=== PATIENT | female | born 1970 | race Hispanic/Latino ===

== ENCOUNTER → 2020-03-21 | Outpatient (CLI) | payer OTHER ==
--- NOTE | 2020-03-21 11:38 | Diagnostic Imaging Report ---
Air contrast esophagram. Clinical History: GERD Comparison: None Total Patient Fluoro Time: 1.15 minutes. Radiation dose: 25.5 mGy air Kerma. 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 Oral ingestion of fizzy powder with water. Ingestion of thick barium in the upright LPO position with fluoroscopic observations and spot images as needed. Supine MYERS position ingestion of thin barium and fluoroscopic observations and spot images as needed. Ingestion of water to clear the esophagus as needed. Supine PA evaluation for reflux without and with augmentation maneuvers. Additional fluoroscopic observations and photospot images of the stomach and duodenum in standard projections. Barium pill not swallowed due to lack of history of dysphagia. Use of techniques to minimize radiation exposure instituted. Findings: The table top tile setter radiograph shows no significant abnormality. There are right upper quadrant surgical hoang consistent with prior cholecystectomy. There is no esophageal mass, abnormal extrinsic compression, mucosal abnormality. Peristaltic waves are grossly within normal limits. There is no hiatal hernia. There is no spontaneous or induced gastroesophageal reflux. There is no airway penetration or aspiration. Impression: Unremarkable upper GI double contrast barium examination. Specifically, there is no evidence of reflux or reflux esophagitis. Signed by: Paulo Ramirez MD on 03/21/2020 11:34 AM
== END ==
LOC: DX 09:41
PROVIDERS: ATTEND Family Medicine
DX: K21.9 Gastro-esophageal reflux disease without esophagitis (principal); Z20.828 Contact with and (suspected) exposure to other viral communicable diseases
CPT/HCPCS: 74246; U0002